=== PATIENT | male | born 1990 | race Caucasian/White ===

== ENCOUNTER → 2023-02-11 15:21 | Outpatient (BNVA) | payer BC, SELFPAY | PROVIDERS: PCP Physician Assistant; Visit Provider Urology | DX: Z13.89 Encounter for screening for other disorder (principal) ==

== ENCOUNTER 2024-02-17 15:53 | Outpatient (AMB) | payer BC, SELFPAY ==
--- NOTE | 2024-02-17 16:00 | A.OFFVIS_ITS ---
Intake Intake Visit Reasons: 1Y Follow up(Erectile Dys) Intake Note: Patient is present for Follow up Allergies doxycycline Allergy (Verified 02/11/23 15:48) Unknown HPI HPI Comments History of Present Illness Details Gunnar is a pleasant male. A patient of ?. He is seen for the following urologic conditions - erectile dysfunction Yearly follow-up Interested in trying daily tadalafil 5 mg Prescription provided Discussed impact of SSRIs on libido and mood. Daily tadalafil would increased spontaneity versus on demand medications. Erectile dysfunction Progressive Able to obtain erection but cannot maintain erection Concurrent medications include citalopram and blood pressure medications Therapeutic plan - trial sildenafil 100 mg Review of Systems Const Denies chills and Denies fever(s) Card Reports no additional complaints and Denies syncope Resp Denies cough GI Denies abdominal pain and Denies heartburn Reports as per HPI and Denies change in libido Neuro Denies syncope Psych Denies change in libido Endo Denies change in libido Physical Exam Const General: cooperative, healthy appearing, comfortable and no acute distress Orientation/consciousness: patient oriented x3 HEENT Face and sinus: Yes normal facial exam Mouth: moist mucous membranes Neck Neck: Yes normal visual inspection, Yes full ROM and Yes trachea midline Chest Chest palpation & inspection: normal inspection of the chest Resp Effort & Inspection: normal respiratory effort, able to speak in complete sentences and no respiratory distress GI Inspection: Yes normal to inspection Back/Spine/Pelvis Cervical Spine: normal cervical lordosis Thoracic/Lumbar Spine: thoracic and lumbar spine normal to inspection Skin General skin exam: no rashes or lesions noted Neuro General: patient oriented x3, gait normal, tone normal and moves all extremities Extrem General: Yes normal to inspection and Yes capillary refill normal Assessment & Plan Assessment & Plan (1) Erectile dysfunction: Code(s): N52.9 - Male erectile dysfunction, unspecified Plan Prescription provided Will call if response Medications: New tadalafil 5 mg PO DAILY 90 days 90 tabs 0RF sexual activity N52.9 - Male erectile dysfunction, unspecified Refilled sildenafil administer 60 minutes before intended activity 100 mg PO ONCE 30 days PRN 30 tabs 3RF sexual activity N52.9 - Male erectile dysfunction, unspecified Patient Instructions: Imaging studies, laboratory and physical exam results were discussed and reviewed in detail. No major barriers to patient understanding were identified. An opportunity to ask questions regarding the treatment plan was provided. All questions were answered. The patient expressed understanding and agreement with the above treatment plan. The patient is aware they should contact our office by phone for worsening of their current condition or the appearance of new urologic symptoms. Compliance is encouraged with any medications and followup testing that is ordered. It is a privilege to participate in the urologic care of your patient. If you have any questions or concerns regarding treatment for the above conditions, or other urologic issues, please do not hesitate to contact me. The office telephone contact is [phone]. This note is constructed using voice recognition software. While every effort has been made to ensure accuracy [employer] sales [employer] team member errors may have been included. Yours sincerely, Dr Kelby Welch MD, [facility] - Urology Providers of Expert, Compassionate Care for the Genitourinary System Coding Level of Care Code Est Pt Level 4 (88026) Diagnoses Erectile dysfunction N52.9
== END 2024-02-17 16:16 | disposition home or self-care (01) ==
PROVIDERS: Visit Provider Urology
DX: N52.9 Male erectile dysfunction, unspecified (principal)
CPT/HCPCS: 99214

== ENCOUNTER → 2024-02-17 15:53 | Outpatient (BNVA) | payer BC, SELFPAY | PROVIDERS: Visit Provider Urology ==

== ENCOUNTER 2025-02-15 15:19 | Outpatient (AMB) | payer BC, SELFPAY ==
--- NOTE | 2025-02-15 16:07 | MHC.OFFVIS ---
Intake Visit Reasons: 1y follow up Intake Note: Patient is present for a 1 year follow up Urology Medication:Tadalafil Blood Thinner:none Antibiotic Allergy:none Allergies doxycycline Allergy (Verified 02/15/25 16:12) Unknown HPI Comments Details: Gunnar is a pleasant male. A patient of ?. He is seen for the following urologic conditions - erectile dysfunction Yearly follow-up Had been placed on daily tadalafil and response to SSRI impact on libido and mood Discussed impact of SSRIs on libido and mood. Daily tadalafil would increased spontaneity versus on demand medications. Erectile dysfunction Progressive Able to obtain erection but cannot maintain erection Concurrent medications include citalopram and blood pressure medications Therapeutic plan - trial sildenafil 100 mg Assessment & Plan Assessment & Plan (1) Erectile dysfunction: Code(s): N52.9 - Male erectile dysfunction, unspecified Category: Medical Plan Twelve month follow-up Medications: New sildenafil administer 60 minutes before intended activity [id number] [facility] [id number] Member [id number] 100 mg PO 1XD PRN 30 tabs 0RF sexual activity 30 days N52.9 - Male erectile dysfunction, unspecified Changed From tadalafil 10 mg PO DAILY 30 days 30 tabs 4RF sexual activity N52.9 - Male erectile dysfunction, unspecified To tadalafil 10 mg PO DAILY 90 tabs 3RF sexual activity 90 days N52.9 - Male erectile dysfunction, unspecified Patient Instructions: This note is constructed using voice recognition software. While every effort has been made to ensure accuracy swaging machine operator errors may have been included. Imaging studies, laboratory and physical exam results were discussed and reviewed in detail. No major barriers to patient understanding were identified. An opportunity to ask questions regarding the treatment plan was provided. All questions were answered. The patient expressed understanding and agreement with the above treatment plan. The patient is aware they should contact our office by phone for worsening of their current condition or the appearance of new urologic symptoms. Compliance is encouraged with any medications and followup testing that is ordered. It is a privilege to participate in the urologic care of your patient. If you have any questions or concerns regarding treatment for the above conditions, or other urologic issues, please do not hesitate to contact me. The office telephone contact is [phone]. Sincerely, Dr Kelby Welch MD, [facility] - Urology Compassionate Specialist Care for the Genitourinary System Coding Level of Care Code Est Pt Level 4 (44248) Diagnoses Erectile dysfunction N52.9
--- OUTSIDE RECORDS SUMMARY | 2025-02-15 16:37 | XMS_ITS | Encounter Summary ---
Author Organization [facility] Address [address] [place] [address] Care Team Providers Care Applied Biology Professor Name Role Phone Vandana Delaney MD Primary Care Provider [phone] Reason for Visit * Reason Comments Other Head feels super con gested, runny nose, ears feel clogged, sore throat. Encounter Details Date Type Department Care Team ([facility] st Contact Info) Description 02/14/2025 5:15 PM EDT Office Visit [facility] [address] [id number] Chris Lemus MD [address] [place] [address] Yakelin Cervantes [address] [place] [address] Acute suppurative otitis media of left ear without spontaneous rupture of tympanic membrane, recurrence not specified (Primary Dx); Sore throat; Upper respiratory tract infection, unspecified type Social History Tobacco Use Types Packs/Day Years Used Date Smoking Tobacco: Every Day Cigarettes 1 17 Smokeless Tobacco: Never Tobacco Cessation:Ready to Q uit: Not Asked; Counseling Given: Not Answered Alcohol Use Standard Drinks/Week Comments Not Currently 0 (1 standard drink = 0.6 oz pur e alcohol) [facility] Utilities Answer Date Recorded In the past 12 months has e electric, gas, oil, or water company threatened to shut off services in your home? No 10/01/2024 Social Connection and Isolation Panel [NHANES] A nswer Date Recorded In a typical week, how many times do you talk on the phone with family, friends, or neighbors? Patient declined 10/01/2024 Frequency of Social Gatherings with Friends and Family Not on file 10/01/2024 Attends Buddhist Services Not on file 10/01 Active Member of Clubs or Organizations Not on f ile 10/01/2024 Attends Club or Organization Meetings Not on yuliana e 10/01/2024 Marital Status Not on file 10/01/2024 AUDIT-C Answer Date Recorded Q1: How often do you have a drink containing alc ohol? Never 10/01/2024 Average Number of Drinks Not on file 024 Frequency of Binge Drinking Not on file 09/14 PHQ-2 Answer Date Recorded PHQ-2 Total Score 2 06/04/2024 Hunger Vital Sign Answer Date Recorded Within the past 12 months, y ou worried that your food would run out before you got the money to buy more. Patient declined Within the past 12 months, t he food you bought just didn't last and you didn't have money to get more. Patient declined PRAPARE - Transportation Answer Date Re corded In the past 12 months, has l ack of transportation kept you from medical appointments or from getting medications? No 09/14 In the past 12 months, has l ack of transportation kept you from meetings, work, or from getting things needed for daily living? No 10/01/2024 Housing Stability Vital Sign Answer Jeff e Recorded In the last 12 months, was t here a time when you were not able to pay the mortgage or rent on time? No 10/01/2024 In the past 12 months, how m any times have you moved where you were living? 0 10/01/2024 At any time in the past 12 m [facility], were you homeless or living in a assisted (including now)? No 10/01/2024 Education Answer Date Recorded What is the highest level of school you have completed or the highest degree you have received? 12th grade 09/29/2024 Sex and Gender Information Value Date Recorded Sex Assigned at Male 12/12/2023 11:31 AM EST Gender Identity Male 02/07/2024 7:01 PM EDT Sexual Orientation Heterosexual (straight) 02/06 7:01 PM EDT documented as of this encounter Last Filed Vital Signs Vital Sign Reading Time Taken Comments Blood Pressure 122/82 02/14/2025 5:12 PM EDT Pulse 86 02/14/2025 5:12 PM EDT Temperature 36.9 ??C (98.5 ??F) 02/14/2025 5:12 PM E DT Respiratory Rate 20 02/14/2025 5:12 PM EDT Oxygen Saturation 96% 02/14/2025 5:12 PM EDT Inhaled Oxygen Concentration - - Weight - - Height - - Body Mass Index - - documented in this encounter Progress Notes * Yakelin Cervantes - 02/14/2025 5:17 PM EDT Assessment and plan and data synthesis WILLIAM was seen today for other. Diagnoses and all orders for this visit: Acute suppurative otitis media of left ear without spontaneous rupture of tympanic membrane, recurrence not specified - amoxicillin (AMOXIL) 875 MG tablet; Take 1 tablet (875 mg total) by mouth 2 (two) times a day. Sore throat - POCT Rapid Strep A Upper respiratory tract infection, unspecified type Results for orders placed or performed in visit on 02/14/25 POCT Rapid Strep A Collection Time: 02/14/25 5:17 PM Specimen: Throat Result Value Ref Range Rapid Strep A Screen Negative Negative Lot Number [id number] Sales Operations Assistant Pass Pass Medical decision making Advised to increase fluids and rest. Pseudoephedrine otc per label. Stop afrin. Tylenol/ibuprofen otc per label prn. If new or worsening symptoms occur, or symptoms persist, seek medical follow up. Follow up with PCP. Return to clinic as needed. Rapid strep negative. Declined covid testing. SUBJECTIVE History of present illness: WILLIAM Vargas a 34 y.o. male comes into the clinic for evaluation of Head feels super congested,runny nose, ears feel clogged, right ear hurts, sore throat. Symptoms for 5 days. Afrin, dayquil/nyquil not helping. Chief Complaint: cold symptoms I have reviewed the patient's medications, allergies, past medical history, social history and family history as documented. Past Medical History: Diagnosis Date Alcohol abuse, in remission Depression Hypertension Past Surgical History: Procedure Laterality Date HERNIA REPAIR Approximately 2021 at [facility]. Umbilical. Dr. Vianey Mejia. Social History Tobacco Use Smoking status: Every Day Current packs/day: 1.00 Average packs/day: 1 pack/day for 17.0 years (17.0 ttl pk-yrs) Types: Cigarettes Smokeless tobacco: Never Vaping Use Vaping status: Never Used Substance Use Topics Alcohol use: Not Currently Drug use: Not Currently Family History Problem Relation Age of Onset Hypertension Mother Pancreatic cancer Father at 49 Breast cancer Maternal Grandmother Diabetes Maternal Grandfather Hypertension Maternal Grandfather Alcohol abuse Maternal Grandfather Breast cancer Maternal Aunt Review of Systems Consitutional : denies unintentional weight loss, denies night sweats; denies fever and chills Cardiovascular: Denies palpitations. Denies chest pain. Respiratory: Denies shortness of breath. Denies wheezing. Denies difficulty breathing. Denies cough. Gastrointestinal: Denies vomiting and diarrhea Extremities: denies swelling. Skin: denies rash. OBJECTIVE Vitals: 02/14/25 1712 BP: 122/82 Pulse: 86 Resp: 20 Temp: 98.5 ??F (36.9 ??C) SpO2: 96% EXAMINATION General: No acute distress Eyes: Conjunctiva clear bilaterally with no discharge. Ears and nose: Tm right dull effusion without erythema or perforation. TM left bulging, red, no perforation. Nose no discharge. Mouth and throat: Moist mucous membranes, posterior pharynx mild erythema without exudate no swelling, scant yellow postnasal drip Neck: Supple, nontender, no lymphadenopathy Lungs: Clear to auscultation bilaterally, no rhonchi, no rales, no wheeze. Respirations regular andnon-labored. Heart: Regular rate and rhythm. No murmur. Psych: Affect is normal Neuro: Speech is clear. Alert and oriented. Skin: Warm and dry, no rashes or lesions on visible skin. documented in this encounter Plan of Treatment Upcoming Encounters Date Type Department Care Team (Late st Contact Info) Description 03/18/2025 3:00 PM EDT Consult [facility] Medical Weight Loss [place] [address] [facility] [address] [place] [address] Brisa Alba, SCRIPT ARTIST [address] [place] [address] [place] [address] 06/10/2025 10:00 AM EDT Office Visit [facility] [address] [facility] [address] [place] [address] Vandana Delaney MD [address] [place] [address] documented as of this encounter Procedures Procedure Name Priority Date/Time Associated Diagnosis Comments POCT RAPID STREP A Routine 02/14/2025 5: 17 PM EDT Sore throat documented in this encounter Results * POCT Rapid Strep A (02/14/2025 5:17 PM EDT) [facility] Rapid Strep A Screen Negative Negative Lot Number [id number] Sales Operations Assistant Pass Pass Throat 02/14/2025 5:17 PM EDT Yakelin Cervantes POINT OF CARE TEST ORDERABLES documented in this encounter Visit Diagnoses Diagnosis Acute suppurative otitis media of left ear without spontaneous rupture of tympanic membrane, recurrence not specified- Primary Sore throat Acute pharyngitis Upper respiratory tract infection, unspecified type documented in this encounter Care Teams Applied Biology Professor Relationship Specialty Start Date End Date Vandana Delaney MD [address] [place] [address] PCP - General Internal Medicine 01/23/24 documented as of this encounter
--- OUTSIDE RECORDS SUMMARY | 2025-02-15 16:37 | XMS_ITS | Encounter Summary ---
Author Organization [facility] Address [address] [place] [address] Care Team Providers Care Stallion Keeper Name Role Phone Vandana Delaney MD Primary Care Provider [phone] Reason for Visit * Reason Comments Advice Only Encounter Details Date Type Department Care Team ([facility] Contact Info) Description 02/09/2024 Telephone [facility] [address] [place] [address] Vandana Delaney MD [address] [place] [address] Advice Only Social History Tobacco Use Types Packs/Day Years Used Date Smoking Tobacco: Every Day Cigarettes 1 17 Smokeless Tobacco: Never Alcohol Use Standard Drinks/Week Comments Not Currently 0 (1 standard drink = 0.6 oz pur e alcohol) PHQ-2 Answer Date Recorded PHQ-2 Total Score 2 01/23/2024 Sex and Gender Information Value Date Recorded Sex Assigned at Male 12/12/2023 11:31 AM EST Gender Identity Male 02/07/2024 7:01 PM EDT Sexual Orientation Heterosexual (straight) 02/06 7:01 PM EDT documented as of this encounter Miscellaneous Notes * Telephone Encounter - Seema Hill RN - 02/10/2024 1:38 PM EDT Spoke to Perry regarding sleep study, he states he did see [facility] in [place] for an appointment in maybe late October or early Nov. They never scheduled the sleep study and he has been calling their office and gets the run around , they say they will call him back and never do. He states he is looking for another sleep referral to a different agency and is agreeable to doingit through [facility]. documented in this encounter Plan of Treatment Upcoming Encounters Date Type Department Care Team (Late st Contact Info) Description 03/18/2025 3:00 PM EDT Consult [facility] Medical Weight Loss [place] [address] [facility] [address] [place] [address] Brisa Alba, CUSTOMER RELATIONS SPECIALIST [facility] [address] [place] [address] 06/10/2025 10:00 AM EDT Office Visit [facility] [address] [place] [phone] Vandana Delaney MD [address] [place] [address] documented as of this encounter Visit Diagnoses Not on filedocumented in this encounter Care Teams Stallion Keeper Relationship Specialty Start Date End Date Vandana Delaney MD [address] [place] [address] PCP - General Internal Medicine 01/23/24 documented as of this encounter
--- OUTSIDE RECORDS SUMMARY | 2025-02-15 16:37 | XMS_ITS | Clinical Summary ---
Author Organization [facility] [employer] Address [address] [facility] [address] [place] [address] Care Team Providers Care Marinator Name Role Phone Unavailable Primary Care Provider Unavailabl e Immunizations Name Administration Dates Next Due Pfizer Covid-19 Vaccine 12+ Bivalent 11/11/2022 Social History Tobacco Use Types Packs/Day Years Used Date Smoking Tobacco: Never Assessed Sex and Gender Information Value Date Recorded Sex Assigned at Not on file Legal Sex Male 9:41 AM EST Gender Identity Not on file Sexual Orientation Not on file Plan of Treatment Health Maintenance Due Date Last Done Comments Depression Screening 1990 HIV Screening 1990 SDOH Screening 1990 Alcohol/Substance Use Screening 2002 Tobacco Screening 2002 Family Planning (PISQ) 2005 Hepatitis C Screening 2008 DTaP/Tdap/Td Vaccines (1 - Tdap) 2009 Hepatitis B Vaccines (1 of 3 - 19+ 3-dose series) 2009 COVID-19 Vaccine (2 - 2023-2 5 season) 2024 11/11/2022 Influenza Vaccine (#1) 2024 Zoster Vaccines (1 of 2) 2040 RSV Patients and Pa tients Aged 60 years or older (1 - 1-dose 75+ series) 2065 HIB Vaccines Aged Out No longer eligi ble based on patient's age to complete this topic HPV Vaccines Aged Out No longer eligi ble based on patient's age to complete this topic Hepatitis A Vaccines Aged Out No long er eligible based on patient's age to complete this topic IPV Vaccines Aged Out No longer eligi ble based on patient's age to complete this topic Meningococcal Vaccine Aged Out No frida ayesha eligible based on patient's age to complete this topic Pneumococcal Vaccine: Pediat rics (0 to 5 Years) and At-Risk Patients (6 to 49) Years) Aged Out No longer elig ible based on patient's age to complete this topic RSV under 20 months Aged Out No longe r eligible based on patient's age to complete this topic Rotavirus Vaccines Aged Out No longer eligible based on patient's age to complete this topic
--- OUTSIDE RECORDS SUMMARY | 2025-02-15 16:37 | XMS_ITS ---
Author Name [facility] Unknown History of Medication Use Medication Directions Dispensed Refills Start Date End Date Stat clobetasol (TEMOVATE) 0.05 % cream Apply topically 2 (two) times a day. 02/13/2024 active traZODone (DESYREL) 100 MG tablet Take 200 mg by mouth. active trimethoprim-polymy shireen b (POLYTRIM) ophthalmic solution Administer 1 drop to both eyes every 4 (four) hours. 04/03/2024 active brompheniramine-pse udoephedrine-DM (BROMFED DM) 30-2-10 MG/5ML syrup Take 10 mL by mouth 4 (four) times a day as needed for congestion or cough. 12/10/2023 12/18/2023 active losartan (COZAAR) 50 MG tablet Take 1 tablet (50 mg total) by mouth daily. 11/06/2023 active LYCOPENE PO Take 1 tablet by mouth daily. active losartan (COZAAR) 50 MG tablet 11/06/2023 active albuterol (PROVENTIL HFA; VENTOLIN HFA) 108 (90 Base) MCG/ACT inhaler Inhale 2 puffs every 4 (four) hours as needed for wheezing or shortness of breath. 11/25/2023 active Problems Problem Status Onset Date Problem Type Date of Resoluti on Source Hypertension active 2024-01-23 [facility] Obesity active 2024-01-23 [facility]Act [facility] Bee sting reaction active 2024-01-23 ProblemAct [facility] Tobacco use active 2024-01-23 [facility]Act [facility] Other male erectile dysfunction active 2024-01-23 ProblemAct [facility] Allergic reaction to fruit active 2024-01-23 ProblemAct [facility] Immunizations Vaccine Date Source Lot Number Status Td, Unspecified 11/13/2020 [facility] completed Encounters Encounter Type Encounter Reason Primary Diagnosis Location Date Ambulatory Acute pharyngitis, unspecified Acute pharyngitis, unspecified [facility] 02/14/2025 Ambulatory Influenza due to unidentified influenza virus with other respiratory manifestations Influenza due to unidentified influenza virus with other respiratory manifestations [facility] 11/01/2024 Ambulatory COVID-19 [facility] 10/01/2024 Ambulatory Encounter for genera l adult medical examination without abnormal findings Encounter for general adult medical examination without abnormal findings [facility] 06/04/2024 Ambulatory Conjunctivitis Conjunctivitis [facility] 04/03/2024 Ambulatory Dermatitis, unspecified Dermatitis, unspecified [facility] 02/13/2024 Ambulatory Essential (primary) hypertension Essential (primary) hypertension [facility] 01/23/2024 Ambulatory Acute bronchitis, unspecified Acute bronchitis, unspecified [facility] 12/10/2023 Ambulatory Bronchitis, not specified as acute or chronic Bronchitis, not specified as acute or chronic [facility] 11/25/2023 Care Team Organization Name Specialty Phone Email Start Date End Da te [facility] Vandana Delaney [facility] 02/15/2025 [facility] V[facility]ana Delaney [facility] 01/23/2024 [facility] 12/04/2023 [facility] AJ GALVEZ Primary [facility] 12/04/2023 025 [facility] AJ GALVEZ [facility] 11/25/2023 025 [facility] AJ GALVEZ [facility] 11/25/2023 024
--- OUTSIDE RECORDS SUMMARY | 2025-02-15 16:37 | XMS_ITS | Encounter Summary ---
Author Organization Formerly [facility] Address [address] [place] [address] Care Team Providers Care Financial Services Professional Name Role Phone Vandana Delaney MD Primary Care Provider [phone] Encounter Details Date Type Department Care Team (Latest Contact Info) Description 02/14/2025 Travel Social History Tobacco Use Types Packs/Day Years Used Date Smoking Tobacco: Every Day Cigarettes 1 17 Smokeless Tobacco: Never Alcohol Use Standard Drinks/Week Comments Not Currently 0 (1 standard drink = 0.6 oz pur e alcohol) [facility] Utilities Answer Date Recorded In the past 12 months has [employer] electric, gas, oil, or water company threatened to shut off services in your home? No 10/01/2024 Social Connection and Isolation Panel [NHANES] A nswer Date Recorded In a typical week, how many times do you talk on the phone with family, friends, or neighbors? Patient declined 10/01/2024 Frequency of Social Gatherings with Friends and Family Not on file 10/01/2024 Attends Hoahaoism Services Not on file 10/01 Active Member [...] any time in the past 12 m [facility], were you homeless or living in a long-term (including now)? No 10/01/2024 Education Answer Date Recorded What is the highest level of school you have completed or the highest degree you have received? 12th grade 09/29/2024 Sex and Gender Information Value Date Recorded Sex Assigned at Male 12/12/2023 11:31 AM EST Gender Identity Male 02/07/2024 7:01 PM EDT Sexual Orientation Heterosexual (straight) 02/06 7:01 PM EDT documented as of this encounter Plan of Treatment Upcoming Encounters Date Type Department Care Team (Late st Contact Info) Description 03/18/2025 3:00 PM EDT Consult [facility] Medical Weight [facility] [place] 7 [facility] [address] [place] [phone] Brisa Alba APRN 7 [facility] [address] [place] [phone] 06/10/2025 10:00 AM EDT Office Visit [facility] [address] [facility] [address] [place] [phone] Vandana Delaney MD [address] [place] [address] documented as of this encounter Visit Diagnoses Not on filedocumented in this encounter Care Teams Financial Services Professional Relationship Specialty Start Date End Date Vandana Delaney MD [address] [place] [address] PCP - General Internal Medicine 01/23/24 documented as of this encounter
--- OUTSIDE RECORDS SUMMARY | 2025-02-15 16:38 | XMS_ITS | Encounter Summary ---
Author Organization [facility] Address [address] [place] [address] Care Team Providers Care Aerospace Project Engineer Name Role Phone Vandana Delaney MD Primary Care Provider [phone] Encounter Details Date Type Department Care Team (Late st Contact Info) Description 02/14/2025 Scanned Document [facility] 80 [facility] [address] [place] [address] Provider, Generic Social History Tobacco Use Types Packs/Day Years Used Date Smoking Tobacco: Every Day Cigarettes 1 17 Smokeless Tobacco: Never Alcohol Use Standard Drinks/Week Comments Not Currently 0 (1 standard drink = 0.6 oz pur e alcohol) [facility] Utilities Answer Date Recorded In the past 12 months has [employer] electric, gas, oil, or water company threatened to shut off services in your home? No 10/01/2024 Social Connection and Isolation Panel [NHANES] A nswer Date Recorded In a typical week, how many times do you talk on the phone with family, friends, or neighbors? Patient declined 10/01/2024 Frequency of Social Gatherings with Friends and Family Not on file 10/01/2024 Attends Sabianism Services Not on file 10/01 Active Member [...] any time in the past 12 m [facility], were you homeless or living in a detention (including now)? No 10/01/2024 Education Answer Date [...] Info) Description 03/18/2025 3:00 PM EDT Consult [facility] Medical Weight Loss [place] 7 [facility] [address] [place] [phone] Brisa Alba, NORA 7 [facility] [address] [place] [phone] 06/10/2025 10:00 AM EDT Office Visit [address] [place] [phone] Vandana Delaney MD [address] [place], [place] [address] [place] [address] documented as of this encounter Visit Diagnoses Not on filedocumented in this encounter Care Teams Aerospace Project Engineer Relationship Specialty Start Date End Date Vandana Delaney MD [address] [place] [address] PCP - General Internal Medicine 01/23/24 documented as of this encounter
--- OUTSIDE RECORDS SUMMARY | 2025-02-15 16:38 | XMS_ITS | Clinical Summary ---
Author Organization Formerly [facility] Address [address] [place] [address] Care Team Providers Care Beauty Parlor Cleaner Name Role Phone Vandana Delaney MD Primary Care Provider [phone] Allergies Active Allergy Reactions Criticality Noted Date Comments Doxycycline Anaphylaxis High 07/28/2021 Lisinopril Cough Low 01/23/2024 Medications Medication Sig Dispensed Refills Start Date End Date Status albuterol (PROVENTIL HFA; VENTOLIN HFA) 108 (90 Base) MCG/ACT inhalerIndication s:Acute bronchitis, unspecified organism Inhale 2 puffs every 4 (four) hours as needed for wheezing or shortness of breath. 1 each 12/10/2023 Active ketoconazole (NIZORAL) 2 % shampooIndication s:Eczema, unspecified type Apply topically 2 (two) times a week. Apply to damp skin, lather, leave on 5 minutes, and rinse 120 mL 3 02/13/2024 Active Dupixent 300 MG/2ML pen injector 04/23/2024 Active tadalafil (CIALIS) 10 MG tablet Take 1 tablet (10 mg total) by mouth daily. Active OMEprazole (PriLOSEC) 20 MG capsule Take 1 capsule (20 mg total) by mouth every morning before breakfast. Active citalopram (CeleXA) 20 MG tabletIndications :Anxiety TAKE 1 TABLET BY MOUTH DAILY 90 tablet 1 11/20/2024 Active traZODone (DESYREL) 100 MG tabletIndications :Anxiety TAKE 2 TABLETS BY MOUTH EVERY NIGHT 180 tablet 1 11/20/2024 Active losartan (COZAAR) 50 MG tabletIndications :Hypertension, unspecified type TAKE 1 AND 1/2 TABLETS BY MOUTH DAILY 135 tablet 01/29/2025 Active amoxicillin (AMOXIL) 875 MG tabletIndications :Acute suppurative otitis media of left ear without spontaneous rupture of tympanic membrane, recurrence not specified Take 1 tablet (875 mg total) by mouth 2 (two) times a day. 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 Obesity 01/23/2024 Encounters Date Type Department Care Team Description 02/14/2025 5:15 PM EDT Office Visit [facility] [address] [address] Chris Lemus MD [employer], Katherine [place] Acute suppurative otitis media of left ear without spontaneous rupture of tympanic membrane, recurrence not specified (Primary Dx); Sore throat; Upper respiratory tract infection, unspecified type 02/14/2025 Scanned Document [facility] 80 [facility] [address] [place] [address] Provider, Generic 02/14/2025 Scanned Document [facility] 80 [facility] [address] [place] [address] Provider, Generic 02/14/2025 Travel 01/29/2025 Orders Only [address] [phone] Vandana Delaney MD Leukocytosis, unspecified type (Primary Dx); Hypertension, unspecified type 01/28/2025 Refill [facility] [address] [phone] Vandana Delaney MD Hypertension, unspecified type from Last 3 Months Immunizations Name Administration Dates Next Due Td, Unspecified 11/13/2020 Tdap 08/11/2020 Family History Medical History Relation Name Comments Pancreatic cancer Father at 49 Breast cancer Maternal Aunt Alcohol abuse Maternal Grandfather Diabetes Maternal Grandfather Hypertension Maternal Grandfather Breast cancer Maternal Grandmother Hypertension Mother Relation Name Status Comments Father Half-Sister (maternal) Alive Maternal Aunt Alive Maternal Grandfather Alive Maternal Grandmother Mother Alive Social History Tobacco Use Types Packs/Day Years Used Date Smoking Tobacco: Every Day Cigarettes 1 17 Smokeless Tobacco: Never Tobacco Cessation:Ready to Q uit: Not Asked; Counseling Given: Not Answered Alcohol Use Standard Drinks/Week Comments Not Currently 0 (1 standard drink = 0.6 oz pur e alcohol) [facility] [employer] Answer Date Recorded In the past 12 [...] and Family Not on file 10/01/2024 Attends Yarsani Services Not on file 10/01 Active Member [...] any time in the past 12 m [facility], were you homeless or living in a residential (including now)? No 10/01/2024 Education Answer Date Recorded What is the highest level of school you have completed or the highest degree you have received? 12th grade 09/29/2024 Sex and Gender Information Value Date Recorded Sex Assigned at Male 12/12/2023 11:31 AM EST Gender Identity Male 02/07/2024 7:01 PM EDT Sexual Orientation Heterosexual (straight) 02/06 7:01 PM EDT Last Filed Vital Signs Vital Sign Reading Time Taken Comments Blood Pressure 122/82 02/14/2025 5:12 PM EDT Pulse 86 02/14/2025 5:12 PM EDT Temperature 36.9 ??C (98.5 ??F) 02/14/2025 5:12 PM ED T Respiratory Rate 20 02/14/2025 5:12 PM EDT Oxygen Saturation 96% 02/14/2025 5:12 PM EDT Inhaled Oxygen Concentration - - Weight 136 kg (300 lb) 11/01/2024 3:51 PM EST Height 172.7 cm (5' 8 ) 11/01/2024 3:51 PM EST Body Mass Index 45.61 11/01/2024 3:51 PM EST Plan of Treatment Upcoming Encounters Date Type Department Care Team (Late st Contact Info) Description 03/18/2025 3:00 PM EDT Consult [facility] [place] [address] [facility] [address] [place] [address] Brisa Alba, FINANCIAL ANALYST INTERN [address] [place] [address] [place] [address] 06/10/2025 10:00 AM EDT Office Visit [facility] [place] [address] [place] [address] Vandana Delaney MD [address] [place] [address] Health Maintenance Due Date Last Done Comments Hepatitis C Virus Screening 1990 HIV Screening 2003 Hepatitis B Vaccines (1 of 3 - 19+ 3-dose series) 2009 Pneumococcal Vaccine: Pediatric (0-5 Years) and At-Risk Patients (6 to 49 Years) (1 of 2 - PCV) 2009 COVID-19 Vaccine (2 - Pfizer risk series) 12/02/2022 11/11/2022 Influenza Vaccine 06/14/2024 Physical 06/04/2027 06/04/2024 DTaP/Tdap/Td Vaccines (3 - T d or Tdap) 11/13/2030 11/13/2020, 08/11/2020 HPV Vaccines Aged Out No longer eligi ble based on patient's age to complete this topic Procedures Procedure Name Priority Date/Time Associated Diagnosis Comments POCT RAPID STREP A Routine 02/14/2025 5: 17 PM EDT Sore throat from Last 3 Months Results * POCT Rapid Strep A (02/14/2025 5:17 PM EDT) [facility] Rapid Strep A Screen Negative Negative Lot Number [id number] Wrong Address Clerk [place] Throat 02/14/2025 5:17 PM EDT Yakelin Cervantes POINT OF CARE TEST ORDERABLES from Last 3 Months Care Teams Beauty Parlor Cleaner Relationship Specialty Start Date End Date Vandana Delaney MD [address] [place] [phone] PCP - General Internal Medicine 01/23/24
--- OUTSIDE RECORDS SUMMARY | 2025-02-15 16:38 | XMS_ITS | Encounter Summary ---
Author Organization Formerly [facility] Address [address] [place] [address] Care Team Providers Care Bitumen Plant Operator Name Role Phone Vandana Delaney MD Primary Care Provider [phone] Encounter Details Date Type Department Care Team (Late st Contact Info) Description 02/14/2025 Scanned Document [facility] 80 [facility] [address] [place] [address] Provider, Generic Social History Tobacco Use Types Packs/Day Years Used Date Smoking Tobacco: Every Day Cigarettes 1 17 Smokeless Tobacco: Never Alcohol Use Standard Drinks/Week Comments Not Currently 0 (1 standard drink = 0.6 oz pur e alcohol) [facility] Utilities Answer Date Recorded In the past 12 months has [employer] electric, gas, oil, or water company threatened to shut off services in your home? No 10/01/2024 Social Connection and Isolation Panel [NHANES] A nswer Date Recorded In a typical week, how many times do you talk on the phone with family, friends, or neighbors? Patient declined 10/01/2024 Frequency of Social Gatherings with Friends and Family Not on file 10/01/2024 Attends Protestant Services Not on file 10/01 Active Member [...] were you homeless or living in a snf (including now)? No 10/01/2024 Education Answer Date [...] Info) Description 03/18/2025 3:00 PM EDT Consult [facility] Medical Weight Loss [place] 7 [facility] [address] [place] [phone] Brisa Alba, NORA 7 [facility] [address] [place] [phone] 06/10/2025 10:00 AM EDT Office Visit [address] [place] [phone] Vandana Delaney MD [address] [place], [place] [address] [place] [address] documented as of this encounter Visit Diagnoses Not on filedocumented in this encounter Care Teams Bitumen Plant Operator Relationship Specialty Start Date End Date Vandana Delaney MD [address] [place] [address] PCP - General Internal Medicine 01/23/24 documented as of this encounter
== END 2025-02-15 16:35 | disposition home or self-care (01) ==
LOC: HO.HUSH 15:19
PROVIDERS: PCP Physician Assistant; Visit Provider Urology
DX: N52.9 Male erectile dysfunction, unspecified (principal)
CPT/HCPCS: 99214